=== PATIENT | male | born 1980 | race Two or more races ===

== ENCOUNTER 2020-07-24 13:43 | Emergency (ER) | payer SELFPAY ==
[~2020-07-24] VITALS: Ht 188 cm; Wt 106.6 kg
[2020-07-24] MEDS ORDERED: LABETALOL HCL 5 MG/ML 4ML SYRINGE IV ONE (14:15)
[2020-07-24] MEDS ORDERED: SODIUM CHLORIDE 0.9% 1,000 ML IV ONE ×3 (14:15→21:00)
[2020-07-24] MEDS ORDERED: THIAMINE 100mg/ml INJ (200mg/2ml VIAL) IV ONE (14:15)
[2020-07-24 14:36] LABS: Basophils # (auto) 0.1 10 ^3/uL (0-0.2); Basophils % (auto) 0.9 % (0.0-2.0); Eosinophils # (auto) 0.1 10 ^3/uL (0-0.8); Hemoglobin 19.7 g/dL (13.5-17.5); Lymphocytes # (auto) 3.5 10 ^3/uL (0.4-5.4); Mean Corpuscular Volume 87.5 fL (80.0-100.0)
[2020-07-24 14:37] LABS: Eosinophils % (auto) 0.4 % (0.0-7.0); Lymphocytes % (auto) 26.2 % (10.0-50.0); Mean Corpuscular Hemoglobin 29.5 pg (28.0-32.0); Mean Corpuscular Hgb Conc. 33.7 g/dL (32.0-36.0); Monocytes # (auto) 0.7 10 ^3/uL (0-1.3); Monocytes % (auto) 5.3 % (0.0-12.0); Neutrophils # (auto) 8.9 10 ^3/uL (1.6-8.6); Neutrophils % (auto) 67.2 % (37.0-80.0); Nucleated Red Blood Cells % 0.2 %; Platelet Count (auto) 266 10^3/uL (140-450); Red Blood Cells 6.68 10^6/uL (4.5-5.90); Red Cell Distribution Width 14.5 % (11.8-14.3); White Blood Cell 13.2 10^3/uL (4.4-10.8)
[2020-07-24 14:39] LABS: Hematocrit 58.4 % (41.0-53.0)
[2020-07-24 14:55] LABS: Alanine Aminotransferase 61 U/L (16-61); Albumin 4.5 g/dL (3.4-5.0); Anion Gap 16 (5-15); Aspartate Aminotransferase 94 U/L (15-37); BUN/Creatinine Ratio 9.3; Blood Urea Nitrogen 10 mg/dL (7-18); Calcium 8.9 mg/dL (8.5-10.1); Carbon Dioxide 21 mmol/L (21-32); Chloride 101 mmol/L (98-107); GFR African American 99 mL/min; GFR Non-African American 82 mL/min; Glucose 90 mg/dL (74-106); Sodium 138 mmol/L (136-145)
[2020-07-24 15:03] LABS: Alkaline Phosphatase 73 U/L (45-117); Bilirubin, Total 0.6 mg/dL (0.2-1.0); Total Protein 9.2 g/dL (6.4-8.2)
[2020-07-24 15:05] LABS: Potassium 5.4 mmol/L (3.5-5.1)
[2020-07-24] MEDS ORDERED: ONDANSETRON HCL 4 MG/2 ML VIAL IV ONE (20:30)
[2020-07-24] MEDS ORDERED: SODIUM CHLORIDE 0.9% 500 ML IV ONE (23:45)
[2020-07-25 00:07] VITALS: BP 175/94
== END 2020-07-25 01:56 | disposition home or self-care (01) ==
LOC: EDBD 13:43 → ER 13:43
DX: G93.41 Metabolic encephalopathy (principal); F10.920 Alcohol use, unspecified with intoxication, uncomplicated; I10 Essential (primary) hypertension; F17.210 Nicotine dependence, cigarettes, uncomplicated
CPT/HCPCS: 36415; 70450; 71045; 74176; 80053; 80320; 84484; 85025; 96361; 96374; 99285; J2405; J7030